=== PATIENT | female | born 1970 | race Two or more races ===

== ENCOUNTER 2025-04-11 10:29 | Emergency (ER) | payer OTHER ==
[~2025-04-11] VITALS: Ht 167.6 cm; Wt 83.9 kg
[2025-04-11] MEDS ORDERED: DIPHENHYDRAMINE HCL 50 MG/ML VIAL 1ML IV ONE (11:30)
[2025-04-11] MEDS ORDERED: DEXAMETHASONE SODIUM PHOSPHATE 4 MG/ML VIAL IV ONE (11:30)
[2025-04-11] MEDS ORDERED: DIPHENHYDRAMINE HCL 50 MG/ML VIAL 1ML ONE (11:45)
[2025-04-11] MEDS ORDERED: DEXAMETHASONE SODIUM PHOSPHATE 4 MG/ML VIAL ONE (11:45)
[2025-04-11 12:10] LABS: BASO % 0.7 % (0.1-1.2); EOS # 0.06 (0.04-0.54); EOS % 0.7 % (0.7-7.0); LYMPH # 2.85 (1.18-3.74); LYMPH % 34.4 % (19.3-53.1); MEAN PLATELET VOLUME 10.50 fl (9.4-12.4); MONO # 0.58 (0.24-0.82); MONO % 7.0 % (4.7-12.5); NEUT # 4.71 (1.56-6.13); NEUT % 57.0 % (34.0-71.1); RED CELL DISTRIBUTION WIDTH 13.5 % (11.6-14.4)
== END 2025-04-11 14:41 | disposition home or self-care (01) ==
LOC: ER 11:34
PROVIDERS: General Practice
DX: S80.811A Abrasion, right lower leg, initial encounter (principal); Y93.89 Activity, other specified; Y92.89 Other specified places as the place of occurrence of the external cause; L55.9 Sunburn, unspecified; R22.41 Localized swelling, mass and lump, right lower limb
CPT/HCPCS: 36415; 93971; 96365; 99284; J1100; J1200